=== PATIENT | female | born 1970 | race American Indian/Alaskan Native ===

== ENCOUNTER 2017-07-27 18:35 | Emergency (ER) | payer MEDICAID, OTHER ==
[2017-07-27] MEDS ORDERED: Acetaminophen/HYDROcodone 325-10 MG Tab PO ONE (19:10)
--- NOTE | 2017-07-27 19:13 | EDM.PDOC ---
ED HPI GENERAL MEDICAL PROBLEM - General Chief Complaint: Lower Extremity Injury/Pain Stated Complaint: KNEE IS TURNING [id number] Time Seen by Provider: 07/27/17 19:11 Source of Information: Reports: Patient History Limitations: Reports: No Limitations - History of Present Illness INITIAL COMMENTS - FREE TEXT/NARRATIVE: sudden onset left knee pain, feels like it's loose and wants to turn sideways. denies trauma. Treatments ACCOUNTANT TAX: Reports: Acetaminophen, Cold Therapy Left Knee Pain Score (Numeric/FACES): 7 - Related Data Allergies Allergy/AdvReac Type Severity Reaction Status Date / Time Penicillins Allergy Rash Verified 07/27/17 18:54 tizanidine HCl Allergy Nausea and Verified 07/27/17 18:54 [From Zanaflex] Vomiting Home Meds: Home Meds Cholecalciferol (Vitamin D3) [Vitamin D3] 1.25 mg PO WEEKLY 07/27/17 [History] Gabapentin [Neurontin] 1 tab PO BEDTIME 07/27/17 [History] Omeprazole 1 cap PO DAILY 07/27/17 [History] buPROPion [Wellbutrin XL] 300 mg PO DAILY 07/27/17 [History] Past Medical History - Past Health History Medical/Surgical History: Denies Medical/Surgical History HEENT History: Reports: Otitis Media Other HEENT History: recent case of pink eye Cardiovascular History: Reports: None Respiratory History: Reports: Sleep Apnea Gastrointestinal History: Reports: Chronic Diarrhea Genitourinary History: Reports: None 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: Musculoskeletal History: Reports: Back Pain, Chronic Neurological History: Reports: None Psychiatric History: Reports: None Endocrine/Metabolic History: Reports: None Hematologic History: Reports: None Immunologic History: Reports: None Oncologic (Cancer) History: Reports: None Dermatologic History: Reports: None Other Dermatologic History: ITCHY RASH - Infectious Disease History Infectious Disease History: Reports: Chicken Pox - Past Surgical History Head Surgeries/Procedures: Reports: None HEENT Surgical History: Reports: Other (See Below) Cardiovascular Surgical History: Reports: None Female Surgical History: Reports: Section Endocrine Surgical History: Reports: None Neurological Surgical History: Reports: None Oncologic Surgical History: Reports: None Dermatological Surgical History: Reports: None Social & Family History - Family History Family Medical History: Noncontributory - Tobacco Use Smoking Status *Q: Current Every Day Smoker Years of Tobacco use: 34 Packs/Tins Daily: 0.5 Used Tobacco, but Quit: No Second Hand Smoke Exposure: No - Caffeine Use Caffeine Use: Reports: Coffee, Soda, Tea - Alcohol Use Days Per Week of Alcohol Use: 0 - Recreational Drug Use Recreational Drug Use: No Drug Use in Last 12 Months: No Review of Systems - Review of Systems Review Of Systems: ROS reveals no pertinent complaints other than HPI. ED EXAM, GENERAL - Physical Exam Exam: See Below Exam Limited By: No Limitations General Appearance: Alert, WD/WN, Mild Distress, Other (knee pain) Ears: Hearing Grossly Normal Throat/Mouth: Normal Voice, No Airway Compromise Head: Atraumatic Neck: Non-Tender, Full Range of Motion Respiratory/Chest: No Respiratory Distress Cardiovascular: Regular Rate, Rhythm GI/Abdominal: Soft, Non-Tender Extremities: Other (tender on R/P, NV wnl, gait limited to pain. ) Neurological: Alert, Oriented, Normal Cognition, No Motor/Sensory Deficits Psychiatric: Flat Affect Skin Exam: Warm, Dry, Normal Color Lymphatic: No Adenopathy Course - Vital Signs Last Recorded V/S: Last Vital Signs Temp 37.4 C 07/27/17 18:49 Pulse 88 07/27/17 18:49 Resp 20 07/27/17 18:49 BP Pulse Ox 99 07/27/17 18:49 - Orders/Labs/Meds Meds: Medications Discontinued Medications Generic Name Dose Route Start Last Admin Trade Name Moustapha PRN Reason Stop Dose Admin Hydrocodone Bitart/Acetaminophen 1 tab 07/27/17 19:10 07/27/17 19:17 Donald 325-10 Mg PO 07/27/17 19:11 1 tab ONETIME ONE Administration - Re-Assessments/Exams Free Text/Narrative Re-Assessment/Exam: 07/27/17 19:48 results discussed with pt. Departure - Departure Time of Disposition: 19:48 Disposition: Home, Self-Care 01 Condition: Good Clinical Impression: Unstable knee Qualifiers: Laterality: left Qualified Code(s): M25.362 - Other instability, left knee - Discharge Information Instructions: Knee Pain, [id number] Forms: ED Department Discharge Additional Instructions: 1) rest and elevate knee as much as possible 2) see clinic tomorrow for MRI SCAN OF KNEE or ORTHOPEDIC REFERRAL FOR ARTHROSCOPY 3) take tylenol or motrin for pain
== END 2017-07-27 19:56 | disposition home or self-care (01) ==
LOC: DL.ED 18:35
DX: M25.362 Other instability, left knee (principal); Z88.0 Allergy status to penicillin; Z88.8 Allergy status to other drugs, medicaments and biological substances; Z79.899 Other long term (current) drug therapy; F17.210 Nicotine dependence, cigarettes, uncomplicated
CPT/HCPCS: 73560; 99283; A9270

== ENCOUNTER 2023-02-20 06:35 | Day surgery (SDC) | payer MEDICAID ==
[~2023-02-20 06:35] MED LIST: Dextrose 5%-0.45% NaCl 1,000 ML IV SCH; Midazolam 1 MG/ML 2 ML SDV ONE; Sodium Chloride 0.9% 10 ML Syringe FLUSH PRN; Sodium Chloride 0.9% 10 ML Syringe FLUSH SCH; fentaNYL 100 MCG/2 ML SDV ONE
[2023-02-20] MEDS ORDERED: fentaNYL 100 MCG/2 ML SDV IV ONE ×6 (07:03→07:18)
[2023-02-20] MEDS ORDERED: Midazolam 1 MG/ML 2 ML SDV IV ONE ×6 (07:03→07:13)
[2023-02-20 09:55] VITALS: BP 120/68; PULSE 80
== END 2023-02-20 09:00 | disposition home or self-care (01) ==
LOC: DL.ENDO 06:35
PROVIDERS: ATTEND Internal Medicine Gastroenterology
DX: Z12.11 Encounter for screening for malignant neoplasm of colon (principal); K63.5 Polyp of colon; K57.30 Diverticulosis of large intestine without perforation or abscess without bleeding; F17.210 Nicotine dependence, cigarettes, uncomplicated; K21.9 Gastro-esophageal reflux disease without esophagitis; E66.09 Other obesity due to excess calories; E05.90 Thyrotoxicosis, unspecified without thyrotoxic crisis or storm; E04.1 Nontoxic single thyroid nodule; M51.36 Other intervertebral disc degeneration, lumbar region; J45.909 Unspecified asthma, uncomplicated; I67.9 Cerebrovascular disease, unspecified; Z68.30 Body mass index [BMI] 30.0-30.9, adult; Z87.59 Personal history of other complications of pregnancy, childbirth and the puerperium; Z88.0 Allergy status to penicillin; Z88.8 Allergy status to other drugs, medicaments and biological substances; Z79.899 Other long term (current) drug therapy
CPT/HCPCS: 45385; J2250; J3010; J7042

== ENCOUNTER 2023-05-22 18:36 | Emergency (ER) | payer MEDICAID ==
[2023-05-22 19:38] VITALS: BP 166/95; PULSE 81
== END 2023-05-22 22:20 ==
LOC: DL.ED 18:36
DX: Z53.21 Procedure and treatment not carried out due to patient leaving prior to being seen by health care provider (principal)
CPT/HCPCS: 73610-RT